=== PATIENT | male | born 1980 | race African-American/Black ===

== ENCOUNTER 2017-02-11 14:35 | Emergency (ER) | payer OTHER ==
[~2017-02-11] VITALS: Ht 177.8 cm; Wt 70.0 kg
[~2017-02-11 14:35] MED LIST: IBUP600T26 PO; ROBA750T3 PO
[2017-02-11 14:37] VITALS: BP 142/74; PULSE 84; RESP 16; TEMP 98.2; O2SAT 98
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
[2017-02-11] MEDS ORDERED: KETOROLAC TROMETHAMINE 60 MG/2 ML (IM) VIAL IM ONE (15:15)
[2017-02-11] MEDS ORDERED: ORPHENADRINE INJ 60 MG/2 ML AMP IM ONE (15:15)
[2017-02-11] MEDS ORDERED: NAPR-239 PO (15:19)
[2017-02-11] MEDS ORDERED: CYCL1TAB29 PO (15:19)
== END 2017-02-11 16:31 | disposition home or self-care (01) ==
LOC: NEPD 14:35
DX: S13.9XXA Sprain of joints and ligaments of unspecified parts of neck, initial encounter (principal); S33.5XXA Sprain of ligaments of lumbar spine, initial encounter; V43.92XA Unspecified car occupant injured in collision with other type car in traffic accident, initial encounter
CPT/HCPCS: 99284